=== PATIENT | female | born 1985 | race Caucasian/White ===

== ENCOUNTER 2019-10-17 12:29 | Emergency (ER) | payer OTHER, SELFPAY ==
--- NOTE | 2019-10-17 12:32 | ED.GENADULT ---
HPI - General Adult General Chief complaint: Nausea/Vomiting/Diarrhea Stated complaint: vomiting/diarrhea/chills/bodyaches Time Seen by Provider: 10/17/19 12:48 Source: patient Mode of arrival: ambulatory Limitations: no limitations History of Present Illness HPI narrative: 33-year-old female patient presents to the [facility] with complaints of nausea, vomiting, diarrhea and abdominal pain for the past 3 days. Patient states that she did vomit this morning but since then has been able to keep down some Sprite and sips of water. Patient states that her last diarrhea was last night. Denies any abdominal pain at this time. Denies any fevers, chest pain or shortness of breath. Patient denies any or breast-feeding at this time. Related Data Home Medications Medication Instructions Recorded Confirmed lisinopril-hydrochlorothiazide tablet 10/17/19 Allergies Allergy/AdvReac Type Severity Reaction Status Date / Time No Known Allergies Allergy Unverified 10/14/18 16:25 Review of Systems Review of Systems: Narrative: CONSTITUTIONAL: Denies fever, chills, or sweats. EYES: Denies visual changes, redness, or discharge. ENT: Denies rhinorrhea, congestion, sore throat, or otalgia. CARDIOVASCULAR: Denies chest pain, palpitations, or edema. RESPIRATORY: Denies cough or dyspnea. GASTROINTESTINAL: Positive abdominal pain that has since resolved, positive nausea, vomiting, and diarrhea. GENITOURINARY: Denies dysuria or hematuria. SKIN: Denies rash or itching. MUSCULOSKELETAL: Denies back pain, joint pain, or myalgia. NEUROLOGIC: Denies headache, numbness, or weakness. PSYCHIATRIC: Denies anxiety or depression. PMFSH Past Medical History Medical History Arthritis Hypertension Surgical History Surgical History History of dilatation and curettage Social History Social History Smoking status: Never smoker Comments At the time of my signature I agree with nursing past medical history, surgical, social, and family history. There is no relevant family history pertinent to the presenting complaint. Exam Narrative: Exam Narrative: GENERAL: Well-appearing, well-nourished, and in no acute distress. HEAD: Normocephalic, atraumatic. EYES: PERRLA and EOMI. ENT: Nares clear, no rhinorrhea or epistaxis. Mucous membranes moist. NECK: Supple. No lymphadenopathy CHEST: Clear to auscultation. No respiratory distress. HEART: Regular rate and rhythm. No murmur heard. Normal peripheral pulses. ABDOMEN: Soft, flat, nondistended. No guarding, rebound tenderness, or rigid. No pulsatilla masses. Hyperactive bowel sounds present in all four quadrants. No organomegaly. Negative Lerner?s sign. No periumbicial tenderness. No Supra public tenderness or distension. Good femoral pulses bilaterally. No hernia noted. No scars or surface trauma. EXTREMITIES: Normal range of motion. No edema. SKIN: Warm, dry, no rash. NEURO: No focal deficits. Alert and oriented x3. Course Vital Signs Vital signs: Vital Signs Temperature 37.1 C 10/17/19 12:41 Pulse Rate 70 10/17/19 12:41 Respiratory Rate 16 10/17/19 12:41 Blood Pressure 139/92 H 10/17/19 12:41 Pulse Oximetry 98 10/17/19 12:41 Temperature 37.1 C 10/17/19 12:41 Pulse Rate 70 10/17/19 12:41 Respiratory Rate 16 10/17/19 12:41 Blood Pressure 139/92 H 10/17/19 12:41 Pulse Oximetry 98 10/17/19 12:41 Vital signs reviewed. The patient has been informed that they may have pre-hypertension or Hypertension based on a BP reading in the department. I recommend that the patient call the primary care provider listed on their discharge instructions or a physician of their choice this week to arrange follow up for further evaluation of possible pre-hypertension or Hypertension Medical Decision Making Differ
[2019-10-17 12:41] VITALS: BP 139/92; PULSE 70; RESP 16; TEMP 37.1; O2SAT 98
== END 2019-10-17 13:01 | disposition home or self-care (01) ==
PROVIDERS: Emergency Provider Nurse Practitioner Family; PCP Internal Medicine
DX: A08.4 Viral intestinal infection, unspecified (principal); M19.90 Unspecified osteoarthritis, unspecified site; I10 Essential (primary) hypertension
CPT/HCPCS: 99213; G0463